=== PATIENT | female | born 2000 | race African-American/Black ===

== ENCOUNTER 2021-12-14 08:56 | Emergency (ER) | payer BC, OTHER ==
--- OUTSIDE RECORDS SUMMARY | 2021-12-14 09:00 | XMS REPORT | Continuity of Care Document ---
:2000 Author Organization [facility] t Address [facility] [place] [address] Care Team Providers Name Role Phone Bharti BENTON, A Primary Care Physician Cassie Boone Attending Clinician Unavailable Morgan BRO Attending Clinician Unavailable Cassie CULLEN Attending Clinician Unavailable Morgan Bro MD Attending Clinician 2, Mfm Usg Room Attending Clinician Unavailable Elsa BENTON Attending Clinician ELSA Attending Clinician Unavailable ELSA Attending Clinician Unavailable Pob, Lab Main Attending Clinician Unavailable Doctor Unassigned, Name Attending Clinician Unavailable 5, Mfm Usg Room Attending Clinician Unavailable Sonia PHD Attending Clinician SONIA Attending Clinician Unavailable Jerry CASTELLANO Attending Clinician Unavailable Gerardo YOUNG Attending Clinician Unavailable ANGELICA Attending Clinician Unavailable BHARAT Attending Clinician Unavailable SUE Attending Clinician Unavailable Lucas Xiao Admitting Clinician Unavailable Jerry CASTELLANO Admitting Clinician Unavailable Payers Payer Name Policy Type Policy Number Effective Date Expiration Date S ource [facility] [id number] 2017 00:00:00 [place] [facility] [id number] 2016 HEALTH 00:00:00 Problems Condition Condition Condition Status Onset Resolution Last Treating Co mments Source Name Details Category Date Date Treatment Clinician Date 11 weeks 11 weeks Disease Active 2020-10 Unive rs gestation gestation 0-29 ity of of of 00:00: [place] 00 [facility] 15 weeks 15 weeks Disease Active 2020-10 Unive rs gestation gestation 0-29 ity of of of 00:00: [place] 00 [facility] Branch 19 weeks 19 weeks Disease Active 2020-10 Unive rs gestation gestation 0-29 ity of of of 00:00: [place] 00 [facility] Supervisio Supervisio Disease Active 2020-10 U nivers n of high n of high 0-29 ity of risk risk 00:00: [place] 00 [facility] in second in second Bran ch trimester trimester Obesity Obesity Disease Active 2020-10 Univers affecting affecting 0-29 [place] 00 [facility] trimester trimester Bran ch Morbid Morbid Disease Active 2020-10 Univers obesity obesity 0-15 [place] of with body [place] mass index mass index 00 Me dical of [facility] 40.0-49.9 40.0-49.9 Asthma Asthma Disease Active Univers [facility] Allergies, Adverse Reactions, Alerts Allergy Allergy Status Severity Reaction(s) Onset Inactive Treating Comm ents Source Name Type Date Date Clinician nut - FA Active U [facility] unspecif 2-23 [facility] [place] ketchup DA Active U [facility] 2-23 [facility] 00:[facility] [place] SEAFOOD DA Active U THROAT [facility] CLOSES 2-23 [facility] 00:[facility]: [facility] [place] nut - FA Active U BUMPY ,MOUTH [facility] unspecif 2-23 [facility] 00:00: [facility] 00 [place] [facility] [place] ketchup DA Active U THROAT [facility] CLOSES 2-23 [facility] 00:00: [facility] [place] NO KNOWN Drug Active Univers ALLERGIE Class ity of S [facility] Social History Social Habit Start Date Stop Date Quantity Comments Source ASSERTION 2021-06-27 [facility] 00:00:00 [facility] Exposure to Not sure University SARS-CoV-2 [facility] (event) Branch Alcohol intake 2021-11-27 2021-11-27 Ex-drinker [facility] 00:00:00 00:00:00 (finding) [facility] Tobacco use and 2017-06-17 2017-06-17 Never used Universit y of exposure 00:00:00 00:00:00 [facility] Sex Assigned At [birth year] Universit y of 00:00:00 00:00:00 [facility] Smoking Status Start Date Stop Date Source Never smoker [facility] Medications Ordered Filled Start Stop Current Ordering Indication Dosage Frequency Signature Comments Components Source Medication Medication Date Date Medication? Clinician (SIG) Name Name BABY Yes Take by [facility] ASPIRIN 2-23 mouth. ity of ORAL 16:01: [address] BABY Yes Take by [facility] ASPIRIN 2-23 mouth. ity of ORAL 16:01: [address] BABY Yes [id number] Take by [facility] ASPIRIN 2-23 mouth. ity of ORAL 16:01: [address] BABY Yes [id number] Take by [facility] ASPIRIN 2-23 mouth. ity of ORAL 16:01: [address] BABY Yes [id number] Take by [facility] ASPIRIN 2-23 mouth. ity of ORAL 16:01: [address] BABY Yes [id number] Take by [facility] ASPIRIN 2-23 mouth. ity of ORAL 16:01: [address] BABY Yes [id number] Take by [facility] ASPIRIN 2-23 mouth. ity of ORAL 16:01: [address] ferrous Yes [id number] 325mg Take 1 Un leo sulfate 325 2-23 tablet by ity of mg (65 mg 00:00: mouth [place] iron) 00 daily. Medical tablet Branch ferrous Yes [id number] 325mg Take 1 Un leo sulfate 325 2-23 tablet by ity of mg (65 mg 00:00: mouth [place] iron) 00 daily. Medical tablet Branch ferrous Yes [id number] 325mg Take 1 Un leo sulfate 325 2-23 tablet by ity of mg (65 mg 00:00: mouth [place] iron) 00 daily. Medical tablet Branch ferrous Yes [id number] 325mg Take 1 Un leo sulfate 325 2-23 tablet by ity of mg (65 mg 00:00: mouth [place] iron) 00 daily. Medical tablet Branch 2020-10 Yes Take by Unive rs 25/iron 0-15 mouth. ity of fum/folic/d 14:55: [place] reynolds 07 Medical (-1 Branch ORAL) 2020-10 Yes Take by Unive rs 25/iron 0-15 mouth. ity of fum/folic/d 14:55: [place] reynolds 07 Medical (-1 Branch ORAL) 2020-10 Yes Take by Unive rs 25/iron 0-15 mouth. ity of fum/folic/d 14:55: [place] reynolds 07 Medical (-1 Branch ORAL) 2020-10 Yes Take by Unive rs 25/iron 0-15 mouth. ity of fum/folic/d 14:55: [place] reyn[facility] 07 Medical (-1 Branch ORAL) 2020-10 Yes Take by Unive rs 25/iron 0-15 mouth. ity of fum/folic/d 14:55: [place] reyn[facility] 07 Medical (-1 Branch ORAL) 2020-10 Yes Take by Unive rs 25/iron 0-15 mouth. ity of fum/folic/d 14:55: [place] reyn[facility] 07 Medical (-1 Branch ORAL) 2020-10 Yes Take by Unive rs 25/iron 0-15 mouth. ity of fum/folic/d 14:55: [place] reynolds 07 Medical (-1 Branch ORAL) 2020-10 Yes Take by Unive rs 25/iron 0-15 mouth. ity of fum/folic/d 14:55: [place] reynolds 07 Medical (-1 Branch ORAL) 2020-10 Yes Take by Unive rs 25/iron 0-15 mouth. ity of fum/folic/d 14:55: [place] reynolds 07 Medical (-1 Branch ORAL) 2020-10 Yes Take by Unive rs 25/iron 0-15 mouth. ity of fum/folic/d 14:55: [place] reynolds 07 Medical (-1 Branch ORAL) 2020-10 Yes Take by Unive rs 25/iron 0-15 mouth. ity of fum/folic/d 14:55: [place] reynolds Matthew Medical (-1 Branch ORAL) 2020-10 Yes Take by Unive rs 25/iron 0-15 mouth. ity of fum/folic/d 14:55: [place] [facility]yn[facility] Medical (-1 Branch ORAL) 2020-10 Yes Take by Unive rs 25/iron 0-15 mouth. ity of fum/folic/d 14:55: [place] reynolds Medical (-1 Branch ORAL) 2020-10 Yes Take by Unive rs 25/iron 0-15 mouth. ity of fum/folic/d 14:55: [place] reynolds [facility] Medical (-1 Branch ORAL) 2020-10 Yes Take by Unive rs 25/iron 0-15 mouth. ity of fum/folic/d 14:55: Bia Castro Medical (-1 Branch ORAL) 2020-10 Yes Take by Unive rs 25/iron 0-15 mouth. ity of fum/folic/d 14:55: [place] [facility] (-1 Branch ORAL) albuterol 2020-10 Yes [id number] 2{puff} Inhale 2 Univers 90 0-15 Puffs ity of mcg/actuati 00:00: every 4 Alex as on inhaler 00 (four) Medical hours as Branch needed for Wheezing or Shortness of Breath. albuterol 2020-10 Yes [id number] 2{puff} Inhale 2 Univers 90 0-15 Puffs ity of mcg/actuati 00:00: every 4 Alex as on inhaler 00 (four) Medical hours as Branch needed for Wheezing or Shortness of Breath. albuterol 2020-10 Yes [id number] 2{puff} Inhale 2 Univers 90 0-15 Puffs ity of mcg/actuati 00:00: every 4 Alex as on inhaler 00 (four) Medical hours as Branch needed for Wheezing or Shortness of Breath. albuterol 2020-10 Yes [id number] 2{puff} Inhale 2 Univers 90 0-15 Puffs ity of mcg/actuati 00:00: every 4 Alex as on inhaler 00 (four) Medical hours as Branch needed for Wheezing or Shortness of Breath. albuterol 2020-10 Yes [id number] 2{puff} Inhale 2 Univers 90 0-15 Puffs ity of mcg/actuati 00:00: every 4 Alex as on inhaler 00 (four) Medical hours as Branch needed for Wheezing or Shortness of Breath. albuterol 2020-10 Yes [id number] 2{puff} Inhale 2 Univers 90 0-15 Puffs ity of mcg/actuati 00:00: every 4 Alex as on inhaler 00 (four) Medical hours as Branch needed for Wheezing or Shortness of Breath. albuterol 2020-10 Yes [id number] 2{puff} Inhale 2 Univers 90 0-15 Puffs ity of mcg/actuati 00:00: every 4 Alex as on inhaler 00 (four) Medical hours as Branch needed for Wheezing or Shortness of Breath. albuterol 2020-10 Yes [id number] 2{puff} Inhale 2 Univers 90 0-15 Puffs ity of mcg/actuati 00:00: every 4 Alex as on inhaler 00 (four) Medical hours as Branch needed for Wheezing or Shortness of Breath. albuterol 2020-10 Yes [id number] 2{puff} Inhale 2 Univers 90 0-15 Puffs ity of mcg/actuati 00:00: every 4 Alex as on inhaler 00 (four) Medical hours as Branch needed for Wheezing or Shortness of Breath. albuterol 2020-10 Yes [id number] 2{puff} Inhale 2 Univers 90 0-15 Puffs ity of mcg/actuati 00:00: every 4 Alex as on inhaler 00 (four) Medical hours as Branch needed for Wheezing or Shortness of Breath. albuterol 2020-10 Yes [id number] 2{puff} Inhale 2 Univers 90 0-15 Puffs ity of mcg/actuati 00:00: every 4 Alex as on inhaler 00 (four) Medical hours as Branch needed for Wheezing or Shortness of Breath. albuterol 2020-10 Yes [id number] 2{puff} Inhale 2 Univers 90 0-15 Puffs ity of mcg/actuati 00:00: every 4 Alex as on inhaler 00 (four) Medical hours as Branch needed for Wheezing or Shortness of Breath. albuterol 2020-10 Yes [id number] 2{puff} Inhale 2 Univers 90 0-15 Puffs ity of mcg/actuati 00:00: every 4 Alex as on inhaler 00 (four) Medical hours as Branch needed for Wheezing or Shortness of Breath. albuterol 2020-10 Yes [id number] 2{puff} Inhale 2 Univers 90 0-15 Puffs ity of mcg/actuati 00:00: every 4 Alex as on inhaler 00 (four) Medical hours as Branch needed for Wheezing or Shortness of Breath. albuterol 2020-10 Yes [id number] 2{puff} Inhale 2 Univers 90 0-15 Puffs ity of mcg/actuati 00:00: every 4 Alex as on inhaler 00 (four) Medical hours as Branch needed for Wheezing or Shortness of Breath. albuterol 2020-10 Yes [id number] 2{puff} Inhale 2 Univers 90 0-15 Puffs ity of mcg/actuati 00:00: every 4 Alex as on inhaler 00 (four) Medical hours as Branch needed for Wheezing or Shortness of Breath. Vital Signs Vital Name Observation Time Observation Value Comments Source Systolic blood 2021-11-27 22:03:00 128 mm[facility]Hg[facility] 2021-11-27 22:03:00 76 mm[Hg] [facility] Heart rate 2021-11-27 22:01:00 80 /min [facility] Respiratory rate 2021-11-27 22:01:00 20 /min [facility] Body height 2021-11-27 22:01:00 167.6 cm [facility] Body weight 2021-11-27 22:01:00 129.91 kg [facility] BMI 2021-11-27 22:01:00 46.23 kg/m2 [facility] Oxygen saturation in 2021-11-27 22:01:00 100 /min [facility] Arterial blood by [facility] Pulse oximetry Branch Systolic blood 2021-10-30 22:06:00 136 mm[Hg] [facility] Diastolic blood 2021-10-30 22:06:00 85 mm[Hg] Unive rsity of pressure [facility] Heart rate 2021-10-30 22:06:00 78 /min [facility] [place] [facility] [place] Body temperature 2021-10-30 22:06:00 36.83 Adilia Univ ers[facility] [place] [facility] Respiratory rate 2021-10-30 22:06:00 18 /min Univ ersity of [facility] Body height 2021-10-30 22:06:00 167.6 cm [facility] [place] [facility] [place] Body weight 2021-10-30 22:06:00 130.636 kg Universi ty of [facility] BMI 2021-10-30 22:06:00 46.48 kg/m2 Universi ty of [facility] Systolic blood 2021-10-01 21:43:00 123 mm[Hg] Univer sity of pressure [facility] Diastolic blood 2021-10-01 21:43:00 55 mm[Hg] Unive rsity of [facility] Heart rate 2021-10-01 21:43:00 73 /min Universi ty of [facility] Body temperature 2021-10-01 21:43:00 36.89 Adilia Univ ersity of [facility] Respiratory rate 2021-10-01 21:43:00 18 /min Univ ersity of [facility] Body height 2021-10-01 21:43:00 167.6 cm [facility] [place] [facility] [place] Body weight 2021-10-01 21:43:00 128.368 kg [facility] [place] [facility] [place] BMI 2021-10-01 21:43:00 45.68 kg/m2 Universi ty [facility] Procedures Procedure Date / Time Performed Performing Clinician Sour e CREATININE U 24 HR 2021-12-02 17:13:00 Adum, [facility] PROTEIN QUANT U/24H 2021-12-02 17:13:00 Adum, [facility] ASSIGNMENT OF BENEFITS 2021-11-27 22:56:37 Doctor Unassigned, No [facility] Branch POCT URINALYSIS W/O 2021-11-27 22:04:00 Adum, Patricia [facility] SPECIFIC GRAVITY [facility] SECOND AND THIRD 2021-11-08 21:00:00 Adum, Patricia Mora [facility] TRIMESTER ULTRASOUND Medical [facility] POCT URINALYSIS W/O 2021-10-30 00:00:00 Patricia Bro [facility] ASSIGNMENT OF BENEFITS 2021-10-01 22:28:14 Doctor Unassigned, No [facility] POCT URINALYSIS W/O 2021-10-01 00:00:00 Patricia Bro [facility] SCANNED LAB RESULTS 2021-09-09 06:01:00 Doctor Unassigned, No [facility] Start End Encounter Admission Attending Care Care Encounter Source Date/Time Date/Time Type Type Clinicians Facility Department ID 2020-11-[address] Boone SG [id number] [facility] 11:30:00 Torsten [id number] [facility] 2022-02-07 2022-02-07 Outpatient R [facility] [id number] Univers 10:00:00 10:00:00 [id number] [facility]22-02-07 2022-02-07 Outpatient P [facility] [id number] Univers 10:00:00 10:00:00 [facility] 2021-12-25 2021-12-25 Outpatient R JOEL, [facility] [id number] Univers 09:00:00 09:00:00 PATRICIA [id number] [facility] 2021-12-23 2021-12-23 Outpatient R BHARTI [facility] [id number] Univers 09:00:00 09:00:00 WONDIFUL [id number] ity o f [facility] 2021-12-23 2021-12-23 Outpatient R BHARTI [facility] [id number] Univers 09:00:00 09:00:00 WONDIFUL ity o f [facility] 2021-12-11 2021-12-11 Patient [place], [facility] [id number] Univers 00:00:00 00:00:00 Secure Msg Patricia WHITAKER [id number] [id number] [phone] Hi dical NAL [address] [facility] 2021-12-09 2021-12-09 [facility], [facility] Us Room UNIVERSIT 1 .2.840.114 [id number] Univers 10:00:00 10:45:00 Visit Alin Hunter [place] [id number] ity of CL[place]ICS [id number] [id number] [address] 2021-12-09 2021-12-09 Outpatient R [facility] [id number] Univers 10:00:00 10:00:00 [id number] [facility] 2021-12-09 2021-12-09 Outpatient P HUNTER ALIN [facility] [id number] Univers 10:00:00 10:00:00 HUNTER ALIN [facility] 2021-12-02 2021-12-02 [facility] Wendi, Adc Lab Main [facility] 1.2.8 40.114 [id number] Univers 10:45:00 11:19:44 Visit Patricia Bro [id number] ity of [place] [id number] [id number] Hi dic[address] 2021-12-02 2021-12-02 Outpatient R [facility] [id number] Univers 10:45:00 10:45:00 [id number] [facility] 2021-12-02 2021-12-02 [address] [facility] [id number] Univers 10:45:00 10:45:00 PATRICIA [facility] 2021-11-27 2021-11-27 [facility] Wendi, Adc Lab Main [facility] 1.2.8 40.114 [id number] Univers 17:00:00 17:15:00 Visit Patricia Bro [id number] ity of [place] [id number] [phone] Hi dical [facility] 2021-11-27 2021-11-27 [address] [facility] [id number] Univers 17:00:00 17:00:00 PATRICIA [id number] ity [facility] 2021-11-27 2021-11-27 Outpatient R JOEL, [facility] [id number] Univers 17:00:00 17:00:00 PATRICIA ity [facility] 2021-11-27 2021-11-27 [facility] 1.2.840.114 [id number] Univers 16:00:00 16:47:38 Patricia L JULIANNE [id number] ity of Visit [place] [id number] [phone] Hi dical NAL [facility] 2021-11-27 2021-11-27 Orders Doctor CLOVIS 1.2.840.114 [id number] Univers 00:00:00 00:00:00 Only Unassigned, [place] [id number] ity of [place] [facility] 4.2.7.2.686 Alex as [phone] [facility] [address] [place] 2021-11-27 2021-11-27 [facility] 1.2.840.114 [id number] Univers 00:00:00 00:00:00 Management Patricia Mora JULIANNE [id number] ity of [place] [id number] [id number] Hi dical NAL [facility] 2021-11-08 2021-11-08 [facility], [facility] Us Room UNIVERSIT 1 .2.840.114 [id number] Univers 14:00:00 15:24:24 Visit Christie Calle [place] [id number] ity of CL[place]ICS [id number] [id number] [facility] 104 Branch 2021-11-08 2021-11-08 Outpatient P [facility] [id number] Univers 14:00:00 14:00:00 [id number] ity [facility] 2021-11-08 2021-11-08 Outpatient P SONIA [facility] [id number] Univers 14:00:00 14:00:00 CHRISTIE ity [facility] 2021-10-30 2021-10-30 Outpatient R ADUM, [facility] [id number] Univers 16:00:00 16:24:50 PATRICIA ity of [facility] 2021-10-30 2021-10-30 Routine Adum, [facility] 1.2.840.114 [id number] Univers 16:00:00 16:24:50 Patricia L [place] [id number] ity of Visit [place] [id number] [id number] Hi dical NAL [facility] 2021-10-30 2021-10-30 Outpatient R ADUM, [facility] [id number] Univers 14:30:00 14:30:00 PATRICIA [id number] ity of [facility] 2021-10-04 2021-10-04 Telephone Adum, [facility] [id number] Univers 00:00:00 00:00:00 Patricia L [place] [id number] ity of [place] [id number] [id number] Hi dical NAL [facility] 2021-10-01 2021-10-01 [facility] Wendi, Phillip Lab Main [facility] 1.2.8 40.114 [id number] Univers 16:30:00 16:45:00 Visit Adum, Patricia Mora [place] [id number] ity of [place] 4.2.7.2.[place] [id number] Hi dical NAL [facility] 2021-10-01 2021-10-01 Outpatient R [facility] [id number] Univers 16:30:00 16:30:00 [id number] ity of [facility] 2021-10-01 2021-10-01 Outpatient R ADUM, [facility] [id number] Univers 16:30:00 16:30:00 PATRICIA ity of [facility] 2021-10-01 2021-10-01 Routine Adum, [facility] 1.2.840.114 [id number] Univers 16:00:00 16:18:56 Patricia L [place] [id number] ity of Visit [place] [id number] [phone] Hi dical NAL [facility] 2021-10-01 2021-10-01 Orders Doctor CLOVIS 1.2.840.114 [id number] Univers 00:00:00 00:00:00 Only Unassigned, [place] [id number] ity of [place] [facility] 4.2.7.2.686 Alex as [id number] [address] 2021-09-19 2021-09-19 [facility] 1.2.840.114 [id number] Univers 00:00:00 00:00:00 Management Patricia Morgan ELIECERKATHERINE [id number] ity of [place] 4.2.7.2.[place] [id number] [address] 2021-09-17 2021-09-17 Emergency X [facility] ERT [id number] Univers 19:22:00 22:23:00 MATTY saldaña [facility] 2021-09-17 2021-09-17 Nurse CLOVIS Carrillo [id number] Univers 00:00:00 00:00:00 Triage Arnold [place] [id number] it y of HOSPITAL [id number] Alex as [phone] [facility] [address] [place] 2021-09-09 2021-09-09 Orders Doctor CLOVIS 1.2.840.114 [id number] Univers 00:00:00 00:00:00 Only Unassigned, [place] [id number] ity of [place] [facility] [id number] Alex as [id number] [address] 2021-08-02 2021-08-02 Outpatient R [facility] [id number] Univers 15:30:00 16:52:18 PATRICIA saldaña [facility] 2021-07-29 2021-07-29 Emergency E ANGELICA BL [facility] [id number] [facility] 11:24:00 16:16:00 , KAYE 2021-07-19 2021-07-19 Outpatient R [facility] [id number] Univers 14:30:00 16:00:47 PATRICIA saldaña [facility] 2020-11-27 2020-11-27 [id number] 11:30:00 11:30:00 Apolinarkirstin [id number] [facility] 2020-02-07 2020-02-07 Outpatient BHARATFORMERLY [facility] [id number] [place] 00:00:00 00:00:00 RO [address] 2020-01-25 2020-01-25 Outpatient BHARAT, [facility] [id number] [place] 00:00:00 00:00:00 RO [address] 2019-12-15 2019-12-15 Outpatient [facility] [id number] [place] 00:00:00 00:00:00 LEXIE Hayden [address] 2019-12-15 2019-12-15 Outpatient [facility] [id number] [place] 00:00:00 00:00:00 LEXIE Hayden [address] Results Test Description Test Time Test Comments Results Result Comments Source POCT URINALYSIS W/O SPECIFIC GRAVITY 2021-11-27 22:04:00 Test Item Value Reference Range Interpretation Comme nts POCT PH U (test code = 3254) N/A 5-8 POCT U LEUK EST (test code = 3263) N/A Negative - Negative POCT U NIT (test code = 3262) N/A Negative - Negative POCT U PROT (test code = 3259) Negative Negative - Negative POCT U GLU (test code = 3256) Negative Negative - Negative POCT U KETONE (test code = 3258) N/A Negative - Negative POCT U BLD (test code = 3257) N/A Negative - Negative [facility] SPECIFIC [id number] 22:07:00 Test Item Value Reference Range Interpretation Comments POCT PH U (test code = 3254) n/a 5-8 POCT U LEUK EST (test code = 3263) n/a Negative - Negative POCT U NIT (test code = 3262) n/a Negative - Negative POCT U PROT (test code = 3259) neg Negative - Negative POCT U GLU (test code = 3256) neg Negative - Negative POCT U KETONE (test code = 3258) n/a Negative - Negative POCT U BLD (test code = 3257) n/a Negative - Negative Lab Interpretation (test code = Normal [id number]) [facility] URINALYSIS W/O SPECIFIC [id number] 21:58:00 Test Item Value Reference Range Interpretation Comments POCT PH U (test code = 3254) n/a 5-8 POCT U LEUK EST (test code = 3263) n/a Negative - Negative POCT U NIT (test code = 3262) n/a Negative - Negative POCT U PROT (test code = 3259) neg Negative - Negative POCT U GLU (test code = 3256) neg Negative - Negative POCT U KETONE (test code = 3258) n/a Negative - Negative POCT U BLD (test code = 3257) n/a Negative - Negative [facility],[id number] 10:20:00 Test Item Value Reference Range Interpretation Comments ENDOMETRIUM,BIOPSY (test code = ENDOMETBX) RUN DATE: 12/05/20 [facility] PAGE 1 RUN TIME: 1730 Specimen Inquiry RUN USER: INTERFACE PATIENT: BELEN CAMPBELL LOC: JANES U #: [id number] AGE/SX: 20/F ROOM: RE11/29/20REG DR: Torsten Boone MD : 98 BED: DIS: STATUS: [facility] TLOC: SPEC #: [id number] RECD: 11/29/20-1459 STATUS: DAT ZHOU #: [id number] [place]: 11/29/20- SUBM DR: Torsten Boone MD ENTERED: 11/29/20-1504 SP TYPE: ENDOMETBX OTHR DR: ORDERED: LEVEL IV/2 CODES: [id number] - ENDOMETRIUM, NO PROCEDURES: LEVEL IV (Incomplete) TISSUES: INTRAUTERINE DEVICE - INTRAUTERINE DEVICE ENDOMETRIUM, NOS - ENDOMETRIUM CURETTING CLINICAL HISTORY 20 year old, retained IUD (graham) FINAL DIAGNOSIS Specimen #1 intrauterine device, removal: - for gross identification only Specimen #2 endometrium, curettage: - scant fragments of decidual tissue mixed with blood CPT: 93972, [id number] cds/wpd GROSS DESCRIPTION ANATOMIC SOURCE OF TISSUE (per Requisition): 1. Intrauterine device 2. Endometrium curetting Each specimen is labeled with the patient's name and medical record number. Specimen #1 is received in a formalin-filled container, labeled with the patient's name, and designated "intrauterine device". The specimen consists of a T-shaped, white plastic device measuring 3.2 x 3.0 x 0.2 cm and is for gross identification only. Specimen #2 is received in a formalin-filled container, labeled with the patient's name, and designated "endometrium curetting". The specimen consists of several red tissues on a Telfa pad aggregating to 0.8 x 0.6 x 0.2 cm and is submitted in toto in A1. hz/graham 11/29/20 CONTINUED ON NEXT PAGE RUN DATE: 12/05/20 [facility] PAGE 2 RUN TIME: 1730 Specimen Inquiry RUN USER: INTERFACE SPEC #: [id number] PATIENT: BELEN CAMPBELL #[id number] (Continued) Signed ____Erik Serrato 12/03/20 1020 END OF REPORT AG HEPATITIS B [id number] 19:55:00 Test Item Value Reference Range Interpretation Comments AG HEPATITIS B SURFACE (test code NONREACTIVE NONREACTIVE = HBSAG) : *IS CONSENT FORM SIGNED FOR HIV TESTING? YAB HEPATITIS C [id number] 19:55:00 Test Item Value Reference Range Interpretation Comments AB HEPATITIS C (test code = NONREACTIVE NONREACTIVE HCVAB) SIGNAL TO CUTOFF (test code = 0.02 <0.80 N CUTOFF) : *IS CONSENT FORM SIGNED FOR HIV TESTING? YAB [id number] 19:55:00 Test Item Value Reference Range Interpretation Comments AB TREPONEMA (test code = TREPAB) NONREACTIVE NONREACTIVE : *IS CONSENT FORM SIGNED FOR HIV TESTING? YAB HIV 1 19:55:00 Test Item Value Reference Range Interpretation Comments AB HIV 1 2 (test NONREACTIVE NONREACTIVE Done by Leoncio guzman Centaur code = [id number]) 4th Gen HIV Ag/Ab Combo Screen : *IS CONSENT FORM SIGNED FOR HIV TESTING? YCOVID 19 Asymptomatic IH AG 2020-11-27 14:05:00 Test Item Value Reference Range Interpretation Comments COVID 19 NEGATIVE NEGATIVE This test has b een Asymptomatic IH AG authorize d only for the (test code = detection ofpro teins from COVNONPUIAG) SARS-CoV-2, not for any other viruses orpathogens. N egative results should be treated as presumptive andconfirmed wi th a molecular assay , if necessary for patientmanageme nt. Negative result s do not rule out COVID- 19 andshould not b e used as the sole basis for treatment orpat ient management deci sions, including infec tion controldecision s. Negative result s should be considered i n thecontext of a patient's recent exposure s, history and thepresence of clinical signs and symptoms consis tent withCOVID-19. T his test has not been FD A cleared or approved; th e test hasbeen authori zed by FDA under an Emerge ncy Use Authorization(E UA) for use by fely king certified under the CLIA thatmeet the re quirements to perform mode rate, high or waivedcomple xity tests. This will t is authorized for use at thePoint of Car e (POC), i.e., in patien t care settingsoperati ng under a CLIA Certificat e of Waiver, Certifi roberto ofCompliance, o r Certificate of Accreditation. This test is only authori zed for the duration of thedeclaration that circumstances e xist justifying theauthorizatio n of emergency use o f in vitro diagnostic test sfor detection and/o r diagnosis of CO VID-19 under Rkabnxe99 4(b)(1) of the Act, 21 U.S .C. 360bbb-3(b)(1), unless theauthorizatio n is terminated or r evoked sooner. AG HEPATITIS B [id number] 13:53:00 Test Item Value Reference Range Interpretation Comments AG HEPATITIS B SURFACE (test code NONREACTIVE NONREACTIVE = HBSAG) : *IS CONSENT FORM SIGNED FOR HIV TESTING? YAB HEPATITIS C [id number] 13:53:00 Test Item Value Reference Range Interpretation Comments AB HEPATITIS C (test code = NONREACTIVE NONREACTIVE HCVAB) SIGNAL TO CUTOFF (test code = 0.02 <0.80 N CUTOFF) : *IS CONSENT FORM SIGNED FOR HIV TESTING? YAB [id number] 13:53:00 Test Item Value Reference Range Interpretation Comments AB TREPONEMA (test code = TREPAB) NONREACTIVE NONREACTIVE : *IS CONSENT FORM SIGNED FOR HIV TESTING? YAB HIV 1 13:53:00 Test Item Value Reference Range Interpretation Comments AB HIV 1 2 (test code = [id number]) NONREACTIVE : *IS CONSENT FORM SIGNED FOR HIV TESTING? YAG HEPATITIS B [id number] 13:26:00 Test Item Value Reference Range Interpretation Comments AG HEPATITIS B SURFACE (test code NONREACTIVE NONREACTIVE = HBSAG) : *IS CONSENT FORM SIGNED FOR HIV TESTING? YAB HEPATITIS C [id number] 13:26:00 Test Item Value Reference Range Interpretation Comments AB HEPATITIS C (test code = HCVAB) NONREACTIVE SIGNAL TO CUTOFF (test code = CUTOFF) <0.80 : *IS CONSENT FORM SIGNED FOR HIV TESTING? YAB [id number] 13:26:00 Test Item Value Reference Range Interpretation Comments AB TREPONEMA (test code = TREPAB) NONREACTIVE NONREACTIVE : *IS CONSENT FORM SIGNED FOR HIV TESTING? YAB HIV 1 13:26:00 Test Item Value Reference Range Interpretation Comments AB HIV 1 2 (test code = [id number]) NONREACTIVE : *IS CONSENT FORM SIGNED FOR HIV TESTING? YHCG [id number] 13:09:00 Test Item Value Reference Range Interpretation Comments HCG SERUM (test <1 INTERPRETATI ON:VALUES BETWEEN code = HCG) 15-20 milliInte rnational units/mL NEED T O BERETESTED WITHIN 48 HOURS . All units for these ranges ar e in milliInternatio nalunits/mL0-1 WK AFTER CONCEP TION 0-50 1-2 W KS AFTER CONCEPTION 40-3002-3 WKS A FTER CONCEPTION 100-1 ,0003-4 WKS AFTER CONCEPTIO N 500-6,0001-2 MO NTHS AFTER CONCEPTION 5,000-200,0002- 3 MONTHS AFTER CONCEPTION 10,000-100,0002 ND TRIMESTER 3,000-50,0003RD TRIMESTER 1 ,000-50,000 SPECIMENS WITH AN HCG LEVEL FROM 0-6 milliInternatio nalunits/mL SHOULD BE CONSI DERED NEGATIVE CBC W/AUTO [id number] 12:42:00 Test Item Value Reference Range Interpretation Comments WHITE BLOOD CELL (test code = WBC) 10.8 K/mm3 6.5-12.3 N RED BLOOD CELL (test code = RBC) 4.70 M/mm3 3.51-4.69 H HEMOGLOBIN (test code = HGB) 13.7 g/dL 10.1-13.8 N HEMATOCRIT (test code = HCT) 43.1 % 32.5-41.8 H MEAN CELL VOLUME (test code = MCV) 91.7 fL 84.6-96.6 N MEAN CELL HGB (test code = MCH) 29.1 pg 27.3-33.9 N MEAN CELL HGB CONCETRATION (test 31.8 gm/dL 32.0-34.2 L code = MCHC) RED CELL DISTRIBUTION WIDTH (test 13.9 % 12.2-16.3 N code = RDW) PLATELET COUNT (test code = PLT) 270 K/mm3 134-363 N MEAN PLATELET VOLUME (test code = 10.5 fL 9.2-12.7 N MPV) NEUTROPHIL % (test code = NT%) 69.1 % 57.9-77.3 N LYMPHOCYTE % (test code = LY%) 21.5 % 14.5-29.7 N MONOCYTE % (test code = MO%) 7.9 % 3.6-10.2 N EOSINOPHIL % (test code = EO%) 0.8 % 0.0-3.0 N BASOPHIL % (test code = BA%) 0.3 % 0.1-0.9 N NEUTROPHIL # (test code = NT#) 7.5 K/mm3 LYMPHOCYTE # (test code = LY#) 2.3 K/mm3 MONOCYTE # (test code = MO#) 0.9 K/mm3 EOSINOPHIL # (test code = EO#) 0.09 K/mm3 BASOPHIL # (test code = BA#) 0.0 K/mm3 RBC MORPHOLOGY REQUIRED (test code NORMAL NORMAL = RBCM) PLATELET MORPHOLOGY REQUIRED (test NORMAL NORMAL code = PLTMR)
[2021-12-14] MEDS ORDERED: NA CHLORIDE 0.9% 500 ML ONE (09:27)
[2021-12-14 09:33] LABS: Absolute Lymphocytes (CBC) 1.3 K/uL (0.7-4.9); Hematocrit 32.6 % (36.0-45.0); Lymphocytes % 14.7 % (15.3-44.8); MPV 8.1 fL (7.6-11.3); RBC Red Blood Cell Count 3.94 M/uL (3.86-4.86)
[2021-12-14 09:57] LABS: ALT/SGPT 13 U/L (12-78); AST/SGOT 10 U/L (15-37); Albumin 2.9 g/dL (3.4-5.0); Alkaline Phosphatase 81 U/L (45-117); BUN Blood Urea Nitrogen 7 mg/dL (7-18); Bicarbonate 22 mmol/L (21-32); Bilirubin Total 0.2 mg/dL (0.2-1.0); Glucose Level 80 mg/dL (74-106); Magnesium 1.7 mg/dL (1.8-2.4); NT PRO-BNP 23 pg/mL (<125); Potassium 3.4 mmol/L (3.5-5.1); Protein, Total 7.3 g/dL (6.4-8.2); Sodium Level 136 mmol/L (136-145)
[2021-12-14 09:58] LABS: Urine Blood Negative (Negative); Urine Glucose Negative (Negative); Urine Protein Negative (Negative); Urine pH 7.5 (5.0-7.0)
[2021-12-14 09:58] LABS: Bilirubin Direct < 0.1 mg/dL (0-0.2); Troponin High Sensitivity < 3.00 pg/mL (<58.9)
--- NOTE | 2021-12-14 10:34 | ER ---
Nurse's Notes [facility] Name: Cassidy Campbell Age: 21 yrs Sex: Female : 2000 Arrival Date: 12/14/2021 Time: 08:58 Bed 5 Private MD: Diagnosis: 28 weeks gestation of ;Anxiety disorder, unspecified;Palpitations;Hypokalemia;Hypomagnesemia;UTI/ Urinary tract infection, site not specified Presentation: 12/14 09:05 Chief complaint: Patient states: SOB and heart fluttering that began today around 0845 aa5 while she was working. Pt denies chest pain. Pt reports being 26 weeks . Coronavirus screen: shortness of breath. Ebola Screen: No symptoms or risks identified at this time. Risk Assessment: Do you want to hurt yourself or someone else? Patient reports no desire to harm self or others. Onset of symptoms was December 14, 2021. 09:05 Method Of Arrival: Wheelchair aa5 09:05 Acuity: ANURADHA 3 aa5 09:05 Initial Sepsis Screen: Does the patient meet any 2 criteria? RR > 20 per min. Does the aa5 patient have a suspected source of infection? No. Patient's initial sepsis screen is negative. Triage Assessment: 09:00 General: Behavior is calm, cooperative. Respiratory: Reports shortness of breath with jg9 palpitations Onset: The symptoms/episode began/occurred gradually, the patient reports symptoms have resolved. 12:45 General: Appears. 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 - Social history:: Smoking status: Patient denies any tobacco usage or history of. - Family history:: not pertinent. Screenin:35 Abuse screen: Denies threats or abuse. Denies injuries from another. Nutritional jg9 screening: No deficits noted. Tuberculosis screening: No symptoms or risk factors identified. Fall Risk None identified. Assessment: 12:44 Reassessment: Patient appears in no apparent distress at this time. Patient states jg9 feeling better. Pain: Denies pain. Cardiovascular: No deficits noted. Rhythm is sinus rhythm. Respiratory: Airway is patent Trachea Respiratory effort is even, unlabored, Breath sounds are clear bilaterally. Vital Signs: 09:05 BP 124 / 73; Pulse 81; Resp 24 S; Pulse Ox 100% on R/A; aa5 09:10 BP 124 / 73; Pulse 80; Resp 15 S; Pulse Ox 100% on R/A; jg9 11:29 Pulse 67; Resp 14 S; Pulse Ox 100% ; jg9 12:30 BP 112 / 72; Pulse 77; Resp 16; Pulse Ox 96% on R/A; jg9 Vitals: 09:51 Heart Tones rate was between [id number]-[id number] actively moving all over. jg9 ED Course: 08:58 Patient arrived in ED. as 09:03 Arm band placed on. aa5 09:04 Arnold Juan MD is Attending Physician. ger 09:06 Katie Orellana, RN is Primary Nurse. jg9 09:15 Triage completed. aa5 09:16 EKG done, by ED staff, reviewed by Arnold Juan MD. em1 09:22 Inserted saline lock: 20 gauge in left antecubital area, using aseptic technique. Blood jg9 collected. 09:49 XRAY Chest (1 view) In Process Unspecified. EDMS 10:33 Dustin Cid MD is Referral Physician. ger 10:52 No apparent distress. Resting quietly. Pt visited by mother, father. jg9 12:46 Patient has correct armband on for positive identification. Bed in low position. jg9 12:58 No provider procedures requiring assistance completed. jg9 12:58 IV discontinued. jg9 Administered Medications: 09:26 Drug: NS 0.9% 500 ml Route: IV; Rate: bolus; Site: left antecubital; jg9 12:44 Follow up: IV Status: Completed infusion; IV Intake: 500ml jg9 10:47 Drug: Rocephin (cefTRIAXone) 1 grams Route: IV; Rate: per protocol; Site: left j9 antecubital; 12:44 Follow up: Response: No adverse reaction jg9 12:47 Follow up: IV Status: Completed infusion; IV Intake: 20ml jg9 10:49 Drug: Potassium Effervescent Tablet 25 mEq Route: PO; jg9 12:43 Follow up: Response: No adverse reaction jg9 10:51 Drug: Magnesium Sulfate 1 grams Route: IVPB; Infused Over: 1 hrs; [place] [facility] [place]; 12:43 Follow up: IV Status: Completed infusion; IV Intake: 50ml jg9 Intake: 12:43 IV: 50ml; Total: 50ml. jg9 12:44 IV: 500ml; Total: 550ml. jg9 12:47 IV: 20ml; Total: 570ml. jg9 Outcome: 10:34 Discharge ordered by . ger 12:58 Discharged to home ambulatory. jg9 12:58 Condition: stable 12:58 Discharge instructions given to patient, Instructed on discharge instructions, follow up and referral plans. Demonstrated understanding of instructions, follow-up care, medications, Prescriptions given X 1. 12:59 Patient left the ED. jg9 Signatures: Dispatcher [employer] EDMS Arnold Juan MD MD cha Martinez, Amelia as Martinez, Eric em1 Jessi Polk RN RN aa5 Katie Orellana RN RN jg9 Corrections: (The following items were deleted from the chart) 09:17 09:05 Chief complaint: Patient states: SOB and heart fluttering that began today around aa5 0845 while she was working. Pt denies chest pain aa5
--- NOTE | 2021-12-14 10:34 | EDPHYS ---
Physician Documentation [facility] Name: Cassidy Campbell Age: 21 yrs Sex: Female : 2000 Arrival Date: 12/14/2021 Time: 08:58 Bed 5 Private MD: ED Physician Arnold Juan HPI: 12/14 09:29 This 21 yrs old Black Female presents to ER via Wheelchair with complaints of ger Palpitations, Shortness Of Breath. 09:29 The patient presents with a history of heart racing. Context: The symptoms occur with [facility] light activity. Onset: The symptoms/episode began/occurred just prior to arrival. Duration: The patient or guardian reports a single episode, that is now resolved. Modifying factors: The symptoms are aggravated by anxiety, The symptoms are alleviated by nothing. Associated signs and symptoms: The patient has no apparent associated signs or symptoms. Severity of symptoms: At their worst the symptoms were moderate in the emergency department the symptoms have improved markedly. The patient has not experienced similar symptoms in the past. 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 - Social history:: Smoking status: Patient denies any tobacco usage or history of. - Family history:: not pertinent. ROS: 09:30 Constitutional: Negative for fever, chills, and weight loss, Eyes: Negative for injury, ger pain, redness, and discharge, ENT: Negative for injury, pain, and discharge, Neck: Negative for injury, pain, and swelling, Respiratory: Negative for shortness of breath, cough, wheezing, and pleuritic chest pain, Abdomen/GI: Negative for abdominal pain, nausea, vomiting, diarrhea, and constipation, Back: Negative for injury and pain, : Negative for injury, bleeding, discharge, and swelling, MS/Extremity: Negative for injury and deformity, Skin: Negative for injury, rash, and discoloration, Neuro: Negative for headache, weakness, numbness, tingling, and seizure, Psych: Negative for depression, anxiety, suicide ideation, homicidal ideation, and hallucinations, Allergy/Immunology: Negative for hives, rash, and allergies, Endocrine: Negative for neck swelling, polydipsia, polyuria, polyphagia, and marked weight changes, Hematologic/Lymphatic: Negative for swollen nodes, abnormal bleeding, and unusual bruising. 09:30 Cardiovascular: Positive for palpitations. Exam: 09:30 Constitutional: This is a well developed, well nourished patient who is awake, alert, ger and in no acute distress. Head/Face: Normocephalic, atraumatic. Eyes: Pupils equal round and reactive to light, extra-ocular motions intact. Lids and lashes normal. Conjunctiva and sclera are non-icteric and not injected. Cornea within normal limits. Periorbital areas with no swelling, redness, or edema. ENT: Nares patent. No nasal discharge, no septal abnormalities noted. Tympanic membranes are normal and external auditory canals are clear. Oropharynx with no redness, swelling, or masses, exudates, or evidence of obstruction, uvula midline. Mucous membranes moist. Neck: Trachea midline, no thyromegaly or masses palpated, and no cervical lymphadenopathy. Supple, full range of motion without nuchal rigidity, or vertebral point tenderness. No Meningismus. Chest/axilla: Normal chest wall appearance and motion. Nontender with no deformity. No lesions are appreciated. Cardiovascular: Regular rate and rhythm with a normal S1 and S2. No gallops, murmurs, or rubs. Normal PMI, no JVD. No pulse deficits. Respiratory: Lungs have equal breath sounds bilaterally, clear to auscultation and percussion. No rales, rhonchi or wheezes noted. No increased work of breathing, no retractions or nasal flaring. Abdomen/GI: Soft, non-tender, with normal bowel sounds. No distension or tympany. No guarding or rebound. No evidence of tenderness throughout. Back: No spinal tenderness. No costovertebral tenderness. Full range of motion. Skin: Warm, dry with normal turgor. Normal color with no rashes, no lesions, and no evidence of cellulitis. MS/ Extremity: Pulses equal, no cyanosis. Neurovascular intact. Full, normal range of motion. Neuro: Awake and alert, GCS 15, oriented to person, place, time, and situation. Cranial nerves II-XII grossly intact. Motor strength 5/5 in all extremities. Sensory grossly intact. Cerebellar exam normal. Normal gait. Psych: Awake, alert, with orientation to person, place and time. Behavior, mood, and affect are within normal limits. 09:30 Musculoskeletal/extremity: DVT Exam: No signs of deep vein thrombosis. no pain, no ger swelling, no tenderness, negative Homans' sign noted on exam, no appreciated bluish discoloration, no erythema, no increased warmth. 09:32 ECG was reviewed by the Attending Physician. [facility] Vital Signs: 09:05 BP 124 / 73; Pulse 81; Resp 24 S; Pulse Ox 100% on R/A; aa5 09:10 BP 124 / 73; Pulse 80; Resp 15 S; Pulse Ox 100% on R/A; jg9 11:29 Pulse 67; Resp 14 S; Pulse Ox 100% ; jg9 12:30 BP 112 / 72; Pulse 77; Resp 16; Pulse Ox 96% on R/A; jg9 MDM: 09:04 Patient medically screened. [facility] 09:31 NEELIMA Risk Score: Total Score = 0. Differential diagnosis: arrythmia, dehydration, ger stress disorder. Data reviewed: vital signs, nurses notes, lab test result(s), EKG, radiologic studies, plain films. Data interpreted: radiation monitor: rate is 80 beats/min, rhythm is regular, Pulse oximetry: on room air is 100 %. Test interpretation: by ED physician or midlevel provider: ECG, plain radiologic studies. Counseling: I had a detailed discussion with the patient and/or guardian regarding: the historical points, exam findings, and any diagnostic results supporting the discharge/admit diagnosis, lab results, radiology results. 12/14 09:05 Order name: Basic Metabolic Panel; Complete Time: 10:32 [facility] 12/14 09:05 Order name: CBC with Diff; Complete Time: 10:32 [facility] 12/14 09:05 Order name: LFT's; Complete Time: 10:32 [facility] 12/14 09:05 Order name: Magnesium; Complete Time: 10:32 [facility] 12/14 09:05 Order name: NT PRO-BNP; Complete Time: 10:32 [facility] 12/14 09:05 Order name: Troponin HS; Complete Time: 10:32 [facility] 12/14 09:05 Order name: XRAY Chest (1 view) [facility] 12/14 09:05 Order name: TSH; Complete Time: 10:32 [facility] 12/14 09:58 Order name: Urine Dipstick-Ancillary EDMS 12/14 10:00 Order name: Urine Culture aa5 12/14 10:03 Order name: Test Urine - POC; Complete Time: 10:32 sp 12/14 09:05 Order name: EKG; Complete Time: 09:06 [facility] 12/14 09:05 Order name: Cardiac monitoring; Complete Time: 09:23 [facility] 12/14 09:05 Order name: EKG - Nurse/Tech; Complete Time: 09:16 [facility] 12/14 09:05 Order name: IV Saline Lock; Complete Time: 09:23 [facility] 12/14 09:05 Order name: Labs collected and sent; Complete Time: 09:23 [facility] 12/14 09:05 Order name: O2 Sat Monitoring; Complete Time: 09:23 [facility] 12/14 09:05 Order name: Urine Dipstick-Ancillary (obtain specimen); Complete Time: 10:39 [facility] 12/14 09:05 Order name: Urine Test (obtain specimen); Complete Time: 10:39 [facility] 12/14 09:32 Order name: FHT's; Complete Time: 09:50 [facility] EC:32 Rate is 89 beats/min. Rhythm is regular. QRS [place] is Normal. [place] interval is normal. QRS ger interval is normal. QT interval is normal. No Q waves. T waves are Normal. No ST changes noted. Clinical impression: Normal ECG and No evidence of ischemia. Interpreted by me. Reviewed by me. Administered Medications: 09:26 Drug: NS 0.9% 500 ml Route: IV; Rate: bolus; Site: left antecubital; jg9 12:44 Follow up: IV Status: Completed infusion; IV Intake: 500ml jg9 10:47 Drug: Rocephin (cefTRIAXone) 1 grams Route: IV; Rate: per protocol; [place] [facility] [place]; 12:44 Follow up: Response: No adverse reaction jg9 12:47 Follow up: IV Status: Completed infusion; IV Intake: 20ml jg9 10:49 Drug: Potassium Effervescent Tablet 25 mEq Route: PO; jg9 12:43 Follow up: Response: No adverse reaction jg9 10:51 Drug: Magnesium Sulfate 1 grams Route: IVPB; Infused Over: 1 hrs; Site: left jg9 antecubital; 12:43 Follow up: IV Status: Completed infusion; IV Intake: 50ml jg9 Disposition Summary: 12/14/21 10:34 Discharge Ordered Location: Home ger Problem: new ger Symptoms: have improved ger Condition: Stable ger Diagnosis - 28 weeks gestation of ger - Anxiety disorder, unspecified ger - Palpitations ger - Hypokalemia ger - Hypomagnesemia ger - UTI/ Urinary tract infection, site not specified ger Followup: ger - With: Private Physician - When: 2 - 3 days - Reason: Recheck today's complaints, Continuance of care, Re-evaluation by your physician Followup: ger - With: - When: 2 - 3 days - Reason: Recheck today's complaints, Re-evaluation by your physician Discharge Instructions: - Discharge Summary Sheet ger - Panic Attack ger - Palpitations ger - Care ger - Potassium Content of Foods ger - Hypomagnesemia ger - Third Trimester of ger - Palpitations, [id number] ger - Urinary Tract Infection, Adult ger - Urinary Tract Infection, Adult, Jips-nr-Prfp ger Forms: - Medication Reconciliation Form ger - Thank You Letter ger - Antibiotic Education ger - Prescription Opioid Use ger Prescriptions: - Macrobid 100 mg Oral Capsule - take 1 capsule by ORAL route every 12 hours for 7 days; 14 capsule; Refills: 0, ger Product Selection Permitted Signatures: Dispatcher [employer] Arnold Raza MD MD cha Calderon, Audri RN RN aa5 Katie Orellana RN RN jg9
--- NOTE | 2021-12-14 10:42 | RAD REPORT ---
EXAM DESCRIPTION: RAD - Chest Single View - 12/14/2021 9:49 am CLINICAL HISTORY: COUGH Chest pain. COMPARISON: Chest Pa And Lat (2 Views) dated 04/11/2017; CHEST PA AND LAT 2 VIEW dated 01/10/2013 FINDINGS: Portable technique limits examination quality. Subtle prominence of the interstitial markings are present which could indicate a viral infection. Th e heart is normal in size. No displaced fractures.
[2021-12-14] MEDS ORDERED: MAGNESIUM SULFATE 1 gm IVPB 1 GM/100 ML BAG IV ONE (10:45)
[2021-12-14] MEDS ORDERED: CEFTRIAXONE 1000 MG/VIAL ONE (10:45)
[2021-12-14] MEDS ORDERED: POTASSIUM 25 MEQ EFFERV TAB ONE (10:45)
[2021-12-14 13:23] VITALS: BP 112/72; O2SAT 96
--- NOTE | 2021-12-15 10:12 | EKG ---
Test Date: 2021-12-14 Test Time: 09:10:48 [facility] Aide: ERIC MEASUREMENT RESULTS: Intervals: Rate: 89 PA: 146 QRSD: 68 QT: 336 QTc: 408 [place]: P: 35 PA: 146 QRS: 60 T: 11 INTERPRETIVE STATEMENTS: Normal sinus rhythm Normal ECG Compared to ECG 04/11/2017 19:12:17 No significant changes Electronically Signed On 12-15-21 10:10:56 CDT by Agustin Keen
== END 2021-12-14 12:59 | disposition home or self-care (01) ==
LOC: ER 08:56
DX: O99.283 Endocrine, nutritional and metabolic diseases complicating pregnancy, third trimester (principal); E87.6 Hypokalemia; E83.42 Hypomagnesemia; O23.43 Unspecified infection of urinary tract in pregnancy, third trimester; N39.0 Urinary tract infection, site not specified; O99.343 Other mental disorders complicating pregnancy, third trimester; F41.9 Anxiety disorder, unspecified; O99.513 Diseases of the respiratory system complicating pregnancy, third trimester; J45.909 Unspecified asthma, uncomplicated; O99.013 Anemia complicating pregnancy, third trimester; D64.9 Anemia, unspecified; Z3A.28 28 weeks gestation of pregnancy; Z79.82 Long term (current) use of aspirin
CPT/HCPCS: 96365; 96361; 93005; 87088; 85025; 87086; 80048; 36415; 83735; 81025; 80076; 84443; 81003; 84484; 83880; 71045; 99284; J3475; J7040